=== PATIENT | male | born 1985 | race Caucasian/White ===

== ENCOUNTER 2017-10-18 16:55 | Emergency (ER) | payer BC ==
[~2017-10-18] VITALS: Ht 182.9 cm; Wt 107.0 kg
[~2017-10-18 16:55] MED LIST: CRUTCH1 EACH; NORCO 5-325 TA1 EACH PO
== END 2017-10-18 21:41 | disposition home or self-care (01) ==
LOC: ED 16:55
DX: J11.1 Influenza due to unidentified influenza virus with other respiratory manifestations (principal); J06.9 Acute upper respiratory infection, unspecified
CPT/HCPCS: 99282